=== PATIENT | female | born 1960 | race Caucasian/White ===

== ENCOUNTER 2024-01-22 09:08 | Emergency (ER) | payer BC, SELFPAY ==
[2024-01-22 09:09] VITALS: BMI 22.1
[2024-01-22 09:10] VITALS: BP 215/114
--- NOTE | 2024-01-22 09:20 | ED.GENMED ---
History of Present Illness
General
Chief Complaint: Headache
Source: patient
Exam Limitations: none
Time Seen by Provider: 01/22/24 09:19
Nursing documentation reviewed up to this point in time: agreed with
Travel History
Have you had any contact with someone who has COVID-19?: No
Do you have any symptoms of coronavirus? Fever > 100 degrees, chills, cough, shortness of breath, sore throat, loss of taste or smell, muscle aches, or headache?: No
History of Present Illness
History of Present Illness:
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
yesterday from 4:30 to 10 p.m., slept well through the night, up at 5:30 a.m. today, came to work works at , was rushing around afraid of being late, 8:30 a.m. at work looking at her computer, 'didn't feel right, I couldn't focus.' She felt
'lightheaded and wobbly,' developed 'pressure in my head.' Took her BP: 210/114. Has not taken her daily BP meds as she usually waits until she gets to work to take them. Intermittent
Denies CP, SOB. Denies n/v/d/c. She has chronic abd pain and is being worked up by GI Dr. Aarno and is to have colonoscopy and endoscopy
States she's been very stressed at work and in fear of losing her job.
Did not take her a.m. metoprolol or enalapril as she usually takes it when she gets to work.
Past History
Past History
ED Past Medical History: HTN and Psychiatric
ED Past Surgical History: Gynecological and Orthopedic
Social History
Tobacco: Non-smoker
Alcohol: Occasional
Personal: Single
Living: alone
Employment: Employed
Review of Systems
Review of Systems
Allergies reviewed?: Yes
All Other Systems: ROS reviewed and negative except as documented in HPI and ROS
Constitutional: Denies fever
Respiratory: Denies trouble breathing
Cardiac: Denies chest pain
ABD/GI: Reports abdominal pain (chronic 'stomach issues' nothing new); Denies nausea, vomiting, bloody stools or black stools
: Denies dysuria, frequency or difficulty voiding
Musculoskeletal: Reports no symptoms
Skin: Reports no symptoms
Neurological: Reports headache and numbness (tingling left arm and hand yesterday, very mild today); Denies weakness
Psychiatric: Reports depression and anxiety (fear of losing her job)
Phy Exam
Physical Exam
Physical Exam:
GENERAL: No acute distress. A&Ox3.
CONSTITUTIONAL: Afebrile.
EYES: PERRL, conjunctivae normal
ENMT: moist mucus membranes, Pharynx nl
RESPIRATORY: Regular respirations, nonlabored, lungs clear.
CARDIOVASCULAR: Regular rate and rhythm, no murmurs, no rubs.
GI: Soft, nontender, normal BS
MUSCULOSKELETAL: Moves with ease. Well perfused.
SKIN: Warm, dry, pink
PSYCH:Depressed mood and affect. Well kept, interactive and appropriate
NEUROLOGIC: Awake, alert and oriented. Speech clear. L side lower facial droop (chronic)No focal neurological deficits. CN 2-12 intact, ambulates with steady gait.
Course
Orders/Labs/Results
Orders:
Orders
01/22/24 09:22
Electrocardiogram (*1) Urgent
Reason for Study: Other
Other Reason for Exam: HTN
EKG- Treatment ONCE
01/22/24 09:58
Complete Blood Count/With Diff Urgent
Comprehensive Metabolic Panel Urgent
TSH Reflex To Free T4 Urgent
Troponin I Urgent
Abnormal Lab Results
04/24/24
09:58
MCHC 31.9 L g/dL
(33.0-37.0)
MPV 11.5 H fL
(7.4-10.4)
01/22/24 09:58
01/22/24 09:58
Vital Signs
Initial and Last Documented VS:
Initial Vital Signs
Pulse Resp BP Pulse Ox
56 20 215/114 100
01/22/24 09:10 01/22/24 09:10 01/22/24 09:10 01/22/24 09:10
Last Documented Vital Signs
Pulse Resp BP Pulse Ox
60 18 166/85 98
01/22/24 11:23 01/22/24 11:23 01/22/24 11:23 01/22/24 11:23
MDM/Problems Addressed
Differential Diagnosis Includes:
HTN urgency, anxiety/depression
MDM/Problems Addressed:
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
yesterday from 4:30 to 10 p.m., slept well through the night, up at 5:30 a.m. today, came to work works at , was rushing around afraid of being late, 8:30 a.m. at work looking at her computer, 'didn't feel right, I couldn't focus.' She felt
'lightheaded and wobbly,' developed 'pressure in my head.' Took her BP: 210/114. Has not taken her daily BP meds as she usually waits until she gets to work to take them. Intermittent
Denies CP, SOB. Denies n/v/d/c. She has chronic abd pain and is being worked up by GI Dr. Aaron and is to have colonoscopy and endoscopy
States she's been very stressed at work and in fear of losing her job.
Did not take her a.m. metoprolol or enalapril as she usually takes it when she gets to work.
NAD
BP 189/102 Pt just took her own Metoprolol 50 mg and Enalapril 20 mg
EKG NSR
11:30 AM
CBC, CMP normal
Troponin normal
After taking her own blood pressure, blood pressure is now 166/85, states she's feeling better.
Just made cardiology appointment for February 09 for f/u
Her high blood pressure is most likely from mixture of not having taken her meds and anxiety/stress.
*EKG
Interpreted by ED Provider?: Yes
EKG Intrepretation Date: 01/22/24
Interpretation: normal
Rate: normal
Rhythm: sinus
[place]: normal axis
Interval: normal interval
QRS Pattern: normal QRS
Ischemia: no ischemia
*Critical Care Note
Total Time (30-74mins, 75-104mins- exclusive of procedures): Not Applicable
ED Attending Note
-
Portions of this chart may have been created with voice recognition software.� Occasional wrong word or��sound alike� substitutions may have occurred due to the inherent limitations of voice recognition software.
Discharge Plan
Departure
Patient Disposition: Home (Routine Discharge)
Date of Disposition: 01/22/24
Time of Disposition: 11:54
Patient with high blood pressure during this ER visit?: Yes
Condition: Good
Discharge Problem:
Hypertension
Instructions: Relaxation Techniques, Stress, BLOOD PRESSURE
Referrals:
Charan Domínguez MD [Active] - Keep scheduled appt
Lake Arguelles MD [Family Provider] -
Activity Restrictions/Additional Instructions:
As we discussed, your blood pressures come down to 166/85.
Continue your current medications
I have provided you with some recommendations for stress reduction/relaxation techniques
Keep your appointment with your potato sorter in May
Interventions
Interventions:
*Risk Screen - Suicide Last Done: 01/22/24 10:25
*General Assessment Last Done: 01/22/24 10:25
*Neglect/Abuse Screening Last Done: 01/22/24 10:25
*ED COVID-19 Vaccine History Last Done: 01/22/24 09:10
*Nursing Disposition Last Done: 01/22/24 12:29
ED- Neurological Assessment Last Done: 01/22/24 10:25
Discharge Date and Time
Discharge Date/Time: 01/22/24 12:29
Print Language: [id number]
[2024-01-22 10:05] LABS: % Basophils 0.5 % (0-2); % Eosinophils 1.6 % (0-6); % Immature Granulocytes 0.3 % (0-0.5); % Lymphocytes 22.7 % (20.5-51.1); % Monocytes 6.4 % (1.7-9.3); % Neutrophils 68.5 % (42.2-75.2); Absolute Eosinophils 0.1 10^3/uL (0-0.7); Absolute Lymphocytes 1.7 10^3/uL (1.2-3.4); Absolute Monocytes 0.5 10^3/uL (0.1-0.6); Absolute Neutrophils 5.1 10^3/uL (1.4-6.5); Hematocrit 43.2 % (37.0-47.0); Hemoglobin 13.8 g/dL (12.0-16.0); Mean Corp Hgb Conc. 31.9 g/dL (33.0-37.0); Mean Corpuscular Hgb 27.4 pg (27.0-31.0); Mean Corpuscular Volume 85.7 fL (81.0-99.0); Mean Platelet Volume 11.5 fL (7.4-10.4); Nucleated Red Blood Cells % 0 %; Platelet Count 196 10^3/uL (130-400); Red Blood Cell Count 5.04 10^6/uL (4.20-5.40); Red Cell Dist. Width 13.6 % (11.5-14.5); White Blood Cell Count 7.5 10^3/uL (4.8-10.8)
[2024-01-22 10:34] LABS: ALT (SGPT) 17 U/L (0-35); AST (SGOT) 33 U/L (14-36); Albumin 4.8 g/dl (3.5-5.0); Alkaline Phosphatase 66 U/L (38-126); Blood Urea Nitrogen 10 mg/dl (7-17); Calcium 10.2 mg/dl (8.4-10.2); Carbon Dioxide 28 mmol/L (22-30); Chloride 105 mmol/L (98-107); Estimated Creatinine Clearance 61 ml/min; Glucose 99 mg/dl (70-99); Potassium 4.6 mmol/L (3.5-5.1); Sodium 140 mmol/L (135-145); Total Bilirubin 0.6 mg/dl (0.2-1.3); Total Protein 7.3 g/dl (6.3-8.2); eGFR > 60.00
[2024-01-22 10:38] LABS: Troponin I < 0.012 ng/ml
[2024-01-22 10:57] LABS: TSH Reflex To Free T4 4.18 uIU/ml (0.47-4.68)
[2024-01-22 11:23] VITALS: BP 166/85
== END 2024-01-22 12:29 | disposition home or self-care (01) ==
LOC: EMR 09:08
PROVIDERS: Registered Nurse; EMERGENCY PHYSICIAN Emergency Medicine; FAMILY PHYSICIAN Family Medicine
DX: I10 Essential (primary) hypertension (principal); E03.9 Hypothyroidism, unspecified
CPT/HCPCS: 99284; 80053; 84443; 84484; 85025; 93005

== ENCOUNTER → 2024-02-21 09:59 | Outpatient (REF) | payer BC, SELFPAY | LOC: MRI 09:59 | PROVIDERS: ATTENDING PHYSICIAN Family Medicine | DX: G44.52 New daily persistent headache (NDPH) (principal) | CPT/HCPCS: 70553 ==

== ENCOUNTER → 2024-03-09 08:48 | Outpatient (REF) | payer BC, SELFPAY ==
[2024-03-09 09:29] LABS: Ionized Calcium 1.22 mMOL/L (1.15-1.33)
[2024-03-09 09:53] LABS: % Basophils 0.8 % (0-2); % Eosinophils 1.9 % (0-6); % Immature Granulocytes 0.2 % (0-0.5); % Lymphocytes 31.5 % (20.5-51.1); % Monocytes 7.7 % (1.7-9.3); % Neutrophils 57.9 % (42.2-75.2); Absolute Eosinophils 0.1 10^3/uL (0-0.7); Absolute Lymphocytes 1.5 10^3/uL (1.2-3.4); Absolute Monocytes 0.4 10^3/uL (0.1-0.6); Absolute Neutrophils 2.8 10^3/uL (1.4-6.5); Hematocrit 41.7 % (37.0-47.0); Hemoglobin 13.8 g/dL (12.0-16.0); Mean Corp Hgb Conc. 33.1 g/dL (33.0-37.0); Mean Corpuscular Hgb 27.8 pg (27.0-31.0); Mean Corpuscular Volume 84.1 fL (81.0-99.0); Mean Platelet Volume 11.5 fL (7.4-10.4); Nucleated Red Blood Cells % 0 %; Platelet Count 182 10^3/uL (130-400); Red Blood Cell Count 4.96 10^6/uL (4.20-5.40); White Blood Cell Count 4.8 10^3/uL (4.8-10.8)
[2024-03-09 11:47] LABS: Calcium 10.3 mg/dl (8.4-10.2)
[2024-03-09 11:49] LABS: ALT (SGPT) 19 U/L (0-35); AST (SGOT) 31 U/L (14-36); Albumin 4.6 g/dl (3.5-5.0); Alkaline Phosphatase 63 U/L (38-126); Blood Urea Nitrogen 11 mg/dl (7-17); Calcium 10.2 mg/dl (8.4-10.2); Carbon Dioxide 28 mmol/L (22-30); Chloride 105 mmol/L (98-107); Glucose 93 mg/dl (70-99); HDL Cholesterol 88 mg/dl; LDL Cholesterol, Calculated 93 mg/dl; Potassium 4.8 mmol/L (3.5-5.1); Sodium 141 mmol/L (135-145); Total Bilirubin 0.5 mg/dl (0.2-1.3); Total Cholesterol 192 mg/dl (50-199); Total Protein 7.1 g/dl (6.3-8.2); Triglyceride 59 mg/dl (10-149); Very Low Density Lipoprotein 11 mg/dl (0-30); eGFR > 60.00
[2024-03-09 12:04] LABS: Glycohemoglobin (HgbA1c) 5.4 % (4.0-5.6)
[2024-03-09 14:00] LABS: TSH 3.78 uIU/ml (0.47-4.68)
[2024-03-09 14:36] LABS: Folate > 20.0 ng/ml (2.76-20); Vitamin B12 644 pg/ml (239-931)
[2024-03-10 14:21] LABS: Intact PTH 73.7 pg/ml (13.6-85.8)
== END ==
LOC: REG 08:48
PROVIDERS: ATTENDING PHYSICIAN Family Medicine; REFERRING PHYSICIAN Specialist
DX: D51.8 Other vitamin B12 deficiency anemias (principal); E21.3 Hyperparathyroidism, unspecified; E78.5 Hyperlipidemia, unspecified; R73.09 Other abnormal glucose; E03.9 Hypothyroidism, unspecified
CPT/HCPCS: 36415; 80053; 80061; 82330; 82607; 82746; 83036; 83970; 84443; 85025

== ENCOUNTER → 2024-03-27 15:19 | Outpatient (REF) | payer BC, SELFPAY | LOC: RCS 15:19 | PROVIDERS: ATTENDING PHYSICIAN Internal Medicine Cardiovascular Disease; FAMILY PHYSICIAN Family Medicine | DX: I10 Essential (primary) hypertension (principal) | CPT/HCPCS: 93306 ==

== ENCOUNTER → 2024-12-22 12:41 | Outpatient (REF) | payer BC, SELFPAY | LOC: MRI 3T 12:41 | PROVIDERS: ATTENDING PHYSICIAN Student in an Organized Health Care Education/Training Program | DX: M48.00 Spinal stenosis, site unspecified (principal) | CPT/HCPCS: 72141 ==

== ENCOUNTER 2024-12-28 16:42 | Outpatient (RCR) | payer BC, SELFPAY | END 2024-12-28 23:59 | disposition home or self-care (01) | LOC: RPT 16:42 | PROVIDERS: ATTENDING PHYSICIAN Student in an Organized Health Care Education/Training Program | DX: M50.30 Other cervical disc degeneration, unspecified cervical region (principal); Z73.6 Limitation of activities due to disability | CPT/HCPCS: 72040; 97010; 97110; 97140; 97162; 97535 ==

== ENCOUNTER → 2025-01-15 07:39 | Outpatient (REF) | payer BC, SELFPAY ==
[2025-01-15 09:01] LABS: % Basophils 0.4 % (0-2); % Eosinophils 1.4 % (0-6); % Immature Granulocytes 0.4 % (0-0.5); % Lymphocytes 15.8 % (20.5-51.1); % Monocytes 6.3 % (1.7-9.3); % Neutrophils 75.7 % (42.2-75.2); Absolute Eosinophils 0.1 10^3/uL (0-0.7); Absolute Lymphocytes 1.6 10^3/uL (1.2-3.4); Absolute Monocytes 0.6 10^3/uL (0.1-0.6); Absolute Neutrophils 7.5 10^3/uL (1.4-6.5); Hematocrit 41.2 % (37.0-47.0); Hemoglobin 13.3 g/dL (12.0-16.0); Mean Corp Hgb Conc. 32.3 g/dL (33.0-37.0); Mean Corpuscular Hgb 27.8 pg (27.0-31.0); Mean Corpuscular Volume 86.2 fL (81.0-99.0); Mean Platelet Volume 11.9 fL (7.4-10.4); Nucleated Red Blood Cells % 0 %; Platelet Count 183 10^3/uL (130-400); Red Blood Cell Count 4.78 10^6/uL (4.20-5.40); Red Cell Dist. Width 12.7 % (11.5-14.5); White Blood Cell Count 9.9 10^3/uL (4.8-10.8)
[2025-01-15 09:51] LABS: ALT (SGPT) 23 U/L (0-35); AST (SGOT) 29 U/L (14-36); Albumin 4.1 g/dl (3.5-5.0); Alkaline Phosphatase 62 U/L (38-126); Blood Urea Nitrogen 12 mg/dl (7-17); Calcium 9.9 mg/dl (8.4-10.2); Carbon Dioxide 29 mmol/L (22-30); Chloride 106 mmol/L (98-107); Glucose 92 mg/dl (70-99); Magnesium 1.9 mg/dl (1.6-2.3); Potassium 4.8 mmol/L (3.5-5.1); Sodium 144 mmol/L (135-145); Total Bilirubin 0.4 mg/dl (0.2-1.3); Total Protein 6.5 g/dl (6.3-8.2); eGFR > 60.00
[2025-01-15 11:58] LABS: Free T4 1.43 ng/dl (0.78-2.19)
[2025-01-15 12:12] LABS: TSH 2.99 uIU/ml (0.47-4.68)
[2025-01-15 12:31] LABS: Vitamin B12 680 pg/ml (239-931)
== END ==
LOC: REG 07:39
PROVIDERS: ATTENDING PHYSICIAN Student in an Organized Health Care Education/Training Program
DX: R25.3 Fasciculation (principal)
CPT/HCPCS: 36415; 80053; 82607; 83735; 84439; 84443; 85025

== ENCOUNTER 2025-01-27 16:47 | Outpatient (RCR) | payer BC, SELFPAY | END 2025-01-27 23:59 | disposition home or self-care (01) | LOC: RPT 16:47 | PROVIDERS: ATTENDING PHYSICIAN Student in an Organized Health Care Education/Training Program | DX: M50.30 Other cervical disc degeneration, unspecified cervical region (principal); Z73.6 Limitation of activities due to disability | CPT/HCPCS: 97010; 97110; 97140 ==

== ENCOUNTER 2025-02-24 17:15 | Outpatient (RCR) | payer BC, SELFPAY | END 2025-02-24 23:59 | disposition home or self-care (01) | LOC: RPT 17:15 | PROVIDERS: ATTENDING PHYSICIAN Student in an Organized Health Care Education/Training Program | DX: M50.30 Other cervical disc degeneration, unspecified cervical region (principal); Z73.6 Limitation of activities due to disability | CPT/HCPCS: 97010; 97110; 97140 ==

== ENCOUNTER → 2025-02-25 09:43 | Outpatient (REF) | payer BC, SELFPAY | LOC: CLAB 09:43 | PROVIDERS: ATTENDING PHYSICIAN Dermatology | DX: D48.5 Neoplasm of uncertain behavior of skin (principal) | CPT/HCPCS: 88305 ==

== ENCOUNTER 2025-03-08 16:51 | Outpatient (RCR) | payer BC, SELFPAY | END 2025-03-09 06:38 | disposition home or self-care (01) | LOC: RPT 16:51 | PROVIDERS: ATTENDING PHYSICIAN Student in an Organized Health Care Education/Training Program | DX: M50.30 Other cervical disc degeneration, unspecified cervical region (principal); Z73.6 Limitation of activities due to disability | CPT/HCPCS: 97010; 97110; 97140 ==

== ENCOUNTER → 2025-03-16 17:08 | Outpatient (REF) | payer BC, SELFPAY | LOC: REG 17:08 | PROVIDERS: ATTENDING PHYSICIAN Student in an Organized Health Care Education/Training Program | DX: I10 Essential (primary) hypertension (principal) | CPT/HCPCS: 36415; 82088; 84244 ==

== ENCOUNTER → 2025-03-25 07:24 | Outpatient (REF) | payer BC, SELFPAY | LOC: RAD 07:24 | PROVIDERS: ATTENDING PHYSICIAN Student in an Organized Health Care Education/Training Program | DX: I10 Essential (primary) hypertension (principal) | CPT/HCPCS: 93975 ==

== ENCOUNTER → 2025-04-16 08:22 | Outpatient (REF) | payer BC, SELFPAY ==
[2025-04-16 09:34] LABS: ALT (SGPT) 20 U/L (0-35); AST (SGOT) 24 U/L (14-36); Albumin 4.7 g/dl (3.5-5.0); Alkaline Phosphatase 61 U/L (38-126); Blood Urea Nitrogen 7 mg/dl (7-17); Calcium 10.1 mg/dl (8.4-10.2); Carbon Dioxide 30 mmol/L (22-30); Chloride 106 mmol/L (98-107); Glucose 96 mg/dl (70-99); Potassium 5.5 mmol/L (3.5-5.1); Sodium 139 mmol/L (135-145); Total Protein 7.1 g/dl (6.3-8.2); eGFR > 60.00
[2025-04-16 10:05] LABS: Cortisol, Random 17.5 ug/dl
[2025-04-19 08:27] LABS: Aldosterone/Renin Activ Ratio 26.5 ratio (<=25.0); Renin Activity Results 0.4 ng/mL/hr
== END ==
LOC: REG 08:22
PROVIDERS: ATTENDING PHYSICIAN Nurse Practitioner Family; FAMILY PHYSICIAN Student in an Organized Health Care Education/Training Program
DX: R79.89 Other specified abnormal findings of blood chemistry (principal)
CPT/HCPCS: 36415; 80053; 82024; 82088; 82533; 83835; 84244

== ENCOUNTER → 2025-04-26 07:07 | Outpatient (REF) | payer BC, SELFPAY ==
[2025-04-26 08:31] LABS: ALT (SGPT) 15 U/L (0-35); AST (SGOT) 22 U/L (14-36); Albumin 4.2 g/dl (3.5-5.0); Alkaline Phosphatase 57 U/L (38-126); Blood Urea Nitrogen 13 mg/dl (7-17); Calcium 9.3 mg/dl (8.4-10.2); Carbon Dioxide 27 mmol/L (22-30); Chloride 110 mmol/L (98-107); Glucose 80 mg/dl (70-99); Potassium 4.6 mmol/L (3.5-5.1); Sodium 143 mmol/L (135-145); Total Protein 6.5 g/dl (6.3-8.2); eGFR > 60.00
[2025-04-26 10:59] LABS: Cortisol, Random 21.4 ug/dl
[2025-04-29 07:57] LABS: Aldosterone/Renin Activ Ratio 78.3 ratio (<=25.0); Renin Activity Results 0.1 ng/mL/hr
== END ==
LOC: REG 07:07
PROVIDERS: ATTENDING PHYSICIAN Nurse Practitioner Family; FAMILY PHYSICIAN Student in an Organized Health Care Education/Training Program
DX: R79.89 Other specified abnormal findings of blood chemistry (principal)
CPT/HCPCS: 36415; 80053; 82024; 82088; 82533; 83835; 84244; 84439; 84443

== ENCOUNTER → 2025-04-27 08:43 | Outpatient (REF) | payer BC, SELFPAY ==
[2025-04-27 09:42] LABS: 24 Hour Urine Total Volume 2900 ml
== END ==
LOC: REG 08:43
PROVIDERS: ATTENDING PHYSICIAN Nurse Practitioner Family; FAMILY PHYSICIAN Student in an Organized Health Care Education/Training Program
DX: R79.89 Other specified abnormal findings of blood chemistry (principal); L65.9 Nonscarring hair loss, unspecified
CPT/HCPCS: 81050; 84300

== ENCOUNTER → 2025-05-14 10:23 | Outpatient (REF) | payer BC, SELFPAY | LOC: WDC 10:23 | PROVIDERS: ATTENDING PHYSICIAN Student in an Organized Health Care Education/Training Program | DX: N64.4 Mastodynia (principal) | CPT/HCPCS: 76642; 77062; 77066 ==

== ENCOUNTER → 2025-05-17 15:57 | Outpatient (REF) | payer BC, SELFPAY | LOC: RCS 15:57 | PROVIDERS: ATTENDING PHYSICIAN Internal Medicine Cardiovascular Disease; FAMILY PHYSICIAN Student in an Organized Health Care Education/Training Program | DX: I10 Essential (primary) hypertension (principal) | CPT/HCPCS: 93306 ==

== ENCOUNTER → 2025-05-24 09:50 | Outpatient (REF) | payer BC, SELFPAY | LOC: HWRAD 09:50 | PROVIDERS: ATTENDING PHYSICIAN Neurological Surgery; FAMILY PHYSICIAN Student in an Organized Health Care Education/Training Program | DX: M47.812 Spondylosis without myelopathy or radiculopathy, cervical region (principal) | CPT/HCPCS: 72125 ==

== ENCOUNTER → 2025-06-02 12:08 | Outpatient (REF) | payer BC, SELFPAY ==
[2025-06-02 13:25] LABS: 24 Hour Urine Total Volume 2300 ml
[2025-06-02 13:38] LABS: ALT (SGPT) 18 U/L (0-35); AST (SGOT) 24 U/L (14-36); Albumin 4.2 g/dl (3.5-5.0); Alkaline Phosphatase 65 U/L (38-126); Blood Urea Nitrogen 10 mg/dl (7-17); Calcium 10.1 mg/dl (8.4-10.2); Carbon Dioxide 29 mmol/L (22-30); Chloride 105 mmol/L (98-107); Glucose 85 mg/dl (70-99); Potassium 4.7 mmol/L (3.5-5.1); Sodium 139 mmol/L (135-145); Total Protein 6.6 g/dl (6.3-8.2); eGFR > 60.00
== END ==
LOC: REG 12:08
PROVIDERS: ATTENDING PHYSICIAN Nurse Practitioner Family
DX: R79.89 Other specified abnormal findings of blood chemistry (principal)
CPT/HCPCS: 36415; 80053; 81050; 82570; 84300

== ENCOUNTER → 2025-07-19 12:55 | Outpatient (REF) | payer BC, SELFPAY ==
[2025-07-19 14:56] LABS: Albumin 4.9 g/dl (3.5-5.0); Blood Urea Nitrogen 9 mg/dl (7-17); Calcium 9.8 mg/dl (8.4-10.2); Carbon Dioxide 29 mmol/L (22-30); Chloride 104 mmol/L (98-107); Glucose 77 mg/dl (70-99); HDL Cholesterol 98 mg/dl; LDL Cholesterol, Calculated 85 mg/dl; Potassium 4.4 mmol/L (3.5-5.1); Sodium 138 mmol/L (135-145); Very Low Density Lipoprotein 15 mg/dl (0-30); eGFR > 60.00
== END ==
LOC: REG 12:55
PROVIDERS: ATTENDING PHYSICIAN Internal Medicine; FAMILY PHYSICIAN Student in an Organized Health Care Education/Training Program
DX: I10 Essential (primary) hypertension (principal); R79.89 Other specified abnormal findings of blood chemistry
CPT/HCPCS: 36415; 80061; 80069; 84443